=== PATIENT | female | born 1990 | race Caucasian/White ===

== ENCOUNTER 2020-08-01 09:42 | Inpatient (IN) | payer MEDICAID ==
[~2020-08-01] VITALS: Ht 162.6 cm; Wt 80.7 kg
[2020-08-01] MEDS ORDERED: MORPHINE SULFATE 4 MG/ML CPJ (NOT FOR IM USE) IV STA (09:55)
[2020-08-01 10:30] LABS: HEMATOCRIT. 39.8 % (36.0-48.0); HEMOGLOBIN. 13.8 g/dL (12.0-16.0); MEAN CORPUSCULAR VOLUME 98.1 fL (81.0-99.0); MEAN PLATELET VOLUME 7.8 fl (7.4-10.4); PLATELET 220 x1000/uL (130-400); RED BLOOD CELL COUNT 4.06 mill/uL (4.2-5.4); RED CELL DISTRIBUTION WIDTH 13.2 % (11.6-14.6)
[2020-08-01 10:34] LABS: CHLORIDE 105 mEq/L (98-107)
[2020-08-01 10:39] LABS: INR 1.1; PROTHROMBIN TIME 12.1 sec (9.6-11.0)
[2020-08-01 11:17] LABS: PLATELET ESTIMATE NORMAL
[2020-08-01] MEDS ORDERED: MORPHINE SULFATE 4 MG/ML CPJ (NOT FOR IM USE) IV ONE (11:30)
[2020-08-01] MEDS ORDERED: VANCOMYCIN 1 G PREMIX 200 ML IV ONE (13:15)
[2020-08-01] MEDS ORDERED: PIPERACILLIN/TAZ 3.375G PREMIX 50 ML IV ONE (13:15)
[2020-08-01] MEDS ORDERED: IOHEXOL-300 100 ML BOTTLE ONE (14:40)
[2020-08-01] MEDS ORDERED: ENOXAPARIN 40MG/0.4ML SYR SUBCUT SCH (16:30)
[2020-08-01 17:00] VITALS: BP 149/94
[2020-08-01] MEDS ORDERED: LEVOFLOXACIN 750MG PREMIX 100 ML IV SCH (17:00)
[2020-08-01] MEDS ORDERED: METRONIDAZOLE 500 MG PREMIX 100 ML IV SCH (17:00)
[2020-08-01] MEDS ORDERED: MORPHINE SULFATE 2 MG/ML CPJ (NOT FOR IM USE) IV PRN (17:00)
[2020-08-01] MEDS: MORPHINE SULFATE 2 MG/ML CPJ (NOT FOR IM USE) IV PRN ×2 (17:18→22:35)
[2020-08-01 17:46] VITALS: BP 144/94
[2020-08-01] MEDS: ENOXAPARIN 30MG/0.3ML SYR SUBCUT SCH (18:00)
[2020-08-01] MEDS ORDERED: AMLO1ORA PO (18:39)
[2020-08-01] MEDS ORDERED: AMLO2.5T2 MT (18:39)
[2020-08-01] MEDS ORDERED: TRAZ-251 MT (18:39)
[2020-08-01] MEDS ORDERED: LORA5TAB8 MT (18:39)
[2020-08-01] MEDS ORDERED: HYDR12.54 MT (18:39)
[2020-08-01] MEDS ORDERED: ESCI5TAB MT (18:39)
[2020-08-01] MEDS ORDERED: ALBU4TAB6 MT (18:39)
[2020-08-01] MEDS ORDERED: TOPUD MT (18:39)
[2020-08-01 20:00] VITALS: BP 129/93
[2020-08-01] MEDS: HYDROCODONE/ACETAMINOPHEN 10/325MG TABLET PO PRN (20:28)
[2020-08-01] MEDS ORDERED: POTASSIUM CHLORIDE 20MEQ TABLET SR PO SCH (21:45)
[2020-08-01] MEDS: SODIUM CHLORIDE 0.9% INJ 3ML FLUSH IVF SCH (22:42)
[2020-08-01] MEDS: METRONIDAZOLE 500 MG PREMIX 100 ML IV SCH (22:57)
[2020-08-02] VITALS: BP 130/78
[2020-08-02] MEDS: LEVOFLOXACIN 750MG PREMIX 100 ML IV SCH ×2 (00:17→22:32)
[2020-08-02] MEDS: HYDROCODONE/ACETAMINOPHEN 10/325MG TABLET PO PRN ×3 (00:33→18:03)
[2020-08-02] MEDS: MORPHINE SULFATE 2 MG/ML CPJ (NOT FOR IM USE) IV PRN ×4 (03:51→15:55)
[2020-08-02 04:00] VITALS: BP 148/85
[2020-08-02] MEDS: SODIUM CHLORIDE 0.9% INJ 3ML FLUSH IVF SCH ×3 (06:00→21:03)
[2020-08-02] MEDS: ENOXAPARIN 30MG/0.3ML SYR SUBCUT SCH ×2 (06:00→18:02)
[2020-08-02] MEDS: METRONIDAZOLE 500 MG PREMIX 100 ML IV SCH ×3 (06:00→21:02)
[2020-08-02] MEDS ORDERED: BUPIVACAINE HCL 0.5% (5MG/ML) 50ML ONE (06:26)
[2020-08-02 06:39] LABS: UCG SCREEN NEGATIVE
[2020-08-02] MEDS ORDERED: MIDAZOLAM HCL 2 MG/2 ML VIAL ONE (06:54)
[2020-08-02] MEDS ORDERED: FENTANYL CITRATE/PF 50MCG/ML 2ML VIAL ONE ×2 (06:54→07:09)
[2020-08-02] MEDS ORDERED: GLYCOPYRROLATE 0.2 MG/ML 2ML VIAL ONE (06:54)
[2020-08-02] MEDS ORDERED: PROPOFOL 200MG/20ML VIAL IV ONE (06:54)
[2020-08-02] MEDS ORDERED: SUCCINYLCHOLINE CHLORIDE 200MG/10ML IV ONE (06:55)
[2020-08-02] MEDS ORDERED: METOCLOPRAMIDE HCL 10MG/2ML VIAL ONE (06:55)
[2020-08-02] MEDS ORDERED: ONDANSETRON HCL 4MG/2ML INJ ONE (06:55)
[2020-08-02] MEDS ORDERED: ALBUTEROL 90MCG/PUFF 17GM INHALER INH ONE (07:08)
[2020-08-02] MEDS ORDERED: ONDANSETRON HCL 4MG/2ML INJ IV PRN ×2 (07:30→07:45)
[2020-08-02] MEDS ORDERED: MEPERIDINE HCL/PF 25MG/ML CPJ IV PRN ×2 (07:45)
[2020-08-02] MEDS ORDERED: MORPHINE SULFATE 2 MG/ML CPJ (NOT FOR IM USE) IV PRN (07:45)
[2020-08-02] MEDS ORDERED: HYDROMORPHONE HCL/PF 2MG/ML CPJ IV PRN (07:45)
[2020-08-02] MEDS ORDERED: SODIUM CHLORIDE 0.9% 1,000 ML IV ONE (07:45)
[2020-08-02 07:51] LABS: HEMATOCRIT. 36.7 % (36.0-48.0); HEMOGLOBIN. 12.8 g/dL (12.0-16.0); MEAN CORPUSCULAR HEMOGLOBIN 33.8 pg (28.0-32.0); MEAN CORPUSCULAR VOLUME 97.2 fL (81.0-99.0); MEAN PLATELET VOLUME 8.5 fl (7.4-10.4); PLATELET 204 x1000/uL (130-400); RED BLOOD CELL COUNT 3.78 mill/uL (4.2-5.4); RED CELL DISTRIBUTION WIDTH 13.5 % (11.6-14.6)
[2020-08-02 07:58] LABS: CHLORIDE 106 mEq/L (98-107)
[2020-08-02 08:06] LABS: HDL CHOLESTEROL 45 mg/dL (40-59); LDL CHOLESTEROL 86 mg/dL (5-100)
[2020-08-02] MEDS ORDERED: ENOXAPARIN 40MG/0.4ML SYR SUBCUT SCH (09:00)
[2020-08-02] MEDS: AMLODIPINE 10MG TABLET PO SCH (09:51)
[2020-08-02 10:36] LABS: *BARBITURATES SCREEN URINE NEGATIVE (NEGATIVE); *BENZODIAZEPINES SCREEN URINE NEGATIVE (NEGATIVE); *COCAINE SCREEN URINE NEGATIVE (NEGATIVE); METHADONE URINE SCREEN NEGATIVE (NEGATIVE)
[2020-08-02 10:37] LABS: *AMPHETAMINES SCREEN URINE NEGATIVE (NEGATIVE); PHENCYCLIDINE URINE SCREEN NEGATIVE (NEGATIVE)
[2020-08-02 11:39] LABS: CANNABINOID URINE SCREEN PRESUMTIVE POSITIVE (NEGATIVE); OPIATES URINE SCREEN PRESUMTIVE POSITIVE (NEGATIVE)
[2020-08-02 12:00] VITALS: BP 125/79
[2020-08-02 16:00] VITALS: BP 136/86
[2020-08-02 17:58] LABS: PLATELET ESTIMATE NORMAL
[2020-08-02] MEDS: DEXT 5%/0.45% NACL KCL 20MEQ/L 1,000 ML IV SCH (18:03)
[2020-08-02 20:00] VITALS: BP 110/63
[2020-08-02] MEDS: MORPHINE SULFATE 4 MG/ML CPJ (NOT FOR IM USE) IV PRN ×2 (20:15→23:15)
[2020-08-03] VITALS: BP 119/59
[2020-08-03] MEDS: HYDROCODONE/ACETAMINOPHEN 10/325MG TABLET PO PRN ×6 (00:23→20:45)
[2020-08-03] MEDS: MORPHINE SULFATE 4 MG/ML CPJ (NOT FOR IM USE) IV PRN ×5 (02:14→22:27)
[2020-08-03] MEDS: DEXT 5%/0.45% NACL KCL 20MEQ/L 1,000 ML IV SCH ×2 (03:16→14:11)
[2020-08-03 04:00] VITALS: BP 109/57
[2020-08-03] MEDS: METRONIDAZOLE 500 MG PREMIX 100 ML IV SCH ×3 (05:21→21:35)
[2020-08-03] MEDS: SODIUM CHLORIDE 0.9% INJ 3ML FLUSH IVF SCH ×3 (05:21→21:35)
[2020-08-03 08:00] VITALS: BP 117/65
[2020-08-03] MEDS: MORPHINE SULFATE 2 MG/ML CPJ (NOT FOR IM USE) IV PRN (09:00)
[2020-08-03] MEDS: ENOXAPARIN 40MG/0.4ML SYR SUBCUT SCH (09:01)
[2020-08-03] MEDS: AMLODIPINE 10MG TABLET PO SCH (09:01)
[2020-08-03 12:00] VITALS: BP 115/65
[2020-08-03 16:00] VITALS: BP 144/79
[2020-08-03] MEDS ORDERED: BISACODYL 5MG TABLET PO PRN (18:15)
[2020-08-03] MEDS: METOCLOPRAMIDE HCL 10MG/2ML VIAL IV SCH (18:22)
[2020-08-03 20:00] VITALS: BP 108/64
[2020-08-03 20:34] LABS: HEMATOCRIT. 34.1 % (36.0-48.0); HEMOGLOBIN. 11.8 g/dL (12.0-16.0); MEAN CORPUSCULAR HEMOGLOBIN 33.1 pg (28.0-32.0); MEAN CORPUSCULAR VOLUME 95.6 fL (81.0-99.0); MEAN PLATELET VOLUME 7.9 fl (7.4-10.4); PLATELET 250 x1000/uL (130-400); RED BLOOD CELL COUNT 3.57 mill/uL (4.2-5.4); RED CELL DISTRIBUTION WIDTH 13.1 % (11.6-14.6)
[2020-08-03 20:41] LABS: CHLORIDE 102 mEq/L (98-107)
[2020-08-03 21:06] LABS: PLATELET ESTIMATE NORMAL
[2020-08-03] MEDS ORDERED: CLINDAMYCIN 600 MG in DEXTROSE 5% WATER 50 ML IV SCH (22:00)
[2020-08-03] MEDS ORDERED: CLINDAMYCIN 600MG PREMIX 50 ML IV SCH (23:00)
[2020-08-03] MEDS: PIPERACILLIN/TAZOBACTAM 3.375G in DEXT 5% WATER 50ML IV SCH (23:18)
[2020-08-04] VITALS: BP 105/59
[2020-08-04] MEDS: DEXT 5%/0.45% NACL KCL 20MEQ/L 1,000 ML IV SCH ×2 (00:09→09:36)
[2020-08-04] MEDS: HYDROCODONE/ACETAMINOPHEN 10/325MG TABLET PO PRN (00:52)
[2020-08-04] MEDS: MORPHINE SULFATE 4 MG/ML CPJ (NOT FOR IM USE) IV PRN ×5 (01:50→22:14)
[2020-08-04 04:00] VITALS: BP 135/77
[2020-08-04] MEDS: PIPERACILLIN/TAZOBACTAM 3.375G in DEXT 5% WATER 50ML IV SCH ×4 (04:58→22:14)
[2020-08-04] MEDS: METOCLOPRAMIDE HCL 10MG/2ML VIAL IV SCH ×3 (04:59→22:15)
[2020-08-04] MEDS: SODIUM CHLORIDE 0.9% INJ 3ML FLUSH IVF SCH ×3 (05:00→22:15)
[2020-08-04 06:50] LABS: HEMATOCRIT. 34.5 % (36.0-48.0); HEMOGLOBIN. 11.8 g/dL (12.0-16.0); MEAN CORPUSCULAR HEMOGLOBIN 33.3 pg (28.0-32.0); MEAN CORPUSCULAR VOLUME 97.2 fL (81.0-99.0); MEAN PLATELET VOLUME 8.4 fl (7.4-10.4); PLATELET 222 x1000/uL (130-400); RED BLOOD CELL COUNT 3.55 mill/uL (4.2-5.4); RED CELL DISTRIBUTION WIDTH 13.2 % (11.6-14.6)
[2020-08-04 07:09] LABS: CHLORIDE 100 mEq/L (98-107)
[2020-08-04 08:00] VITALS: BP 123/69
[2020-08-04] MEDS: MORPHINE SULFATE 2 MG/ML CPJ (NOT FOR IM USE) IV PRN ×3 (08:24→15:20)
[2020-08-04] MEDS: ONDANSETRON HCL 4MG/2ML INJ IV PRN ×2 (08:26→13:15)
[2020-08-04] MEDS: AMLODIPINE 10MG TABLET PO SCH (08:27)
[2020-08-04] MEDS: ENOXAPARIN 40MG/0.4ML SYR SUBCUT SCH (08:27)
[2020-08-04] MEDS ORDERED: POTASSIUM CHLORIDE 20MEQ TABLET SR PO SCH ×2 (08:45→14:00)
[2020-08-04 12:00] VITALS: BP 118/63
[2020-08-04 16:00] VITALS: BP 117/72
[2020-08-04] MEDS ORDERED: KETOROLAC 30MG/ML VIAL IV PRN (16:30)
[2020-08-04] MEDS ORDERED: SENNOSIDES/DOCUSATE SOD 8.6/50MG TABLET PO PRN (17:00)
[2020-08-04] MEDS ORDERED: MORPHINE SULFATE 2 MG/ML CPJ (NOT FOR IM USE) IV PRN (17:00)
[2020-08-04] MEDS: LIDOCAINE HCL 4% CREAM 76GM TUBE TP SCH (17:58)
[2020-08-04 20:00] VITALS: BP 106/57
[2020-08-04] MEDS ORDERED: IOHEXOL-300 100 ML BOTTLE ONE (23:25)
[2020-08-04 23:26] LABS: PLATELET ESTIMATE NORMAL
[2020-08-05] VITALS: BP 124/63
[2020-08-05] MEDS: MORPHINE SULFATE 4 MG/ML CPJ (NOT FOR IM USE) IV PRN ×5 (00:18→12:45)
[2020-08-05] MEDS: LIDOCAINE HCL 4% CREAM 76GM TUBE TP SCH ×3 (00:19→12:44)
[2020-08-05 04:00] VITALS: BP 126/68
[2020-08-05] MEDS: METOCLOPRAMIDE HCL 10MG/2ML VIAL IV SCH ×2 (05:02→15:20)
[2020-08-05] MEDS: PIPERACILLIN/TAZOBACTAM 3.375G in DEXT 5% WATER 50ML IV SCH ×3 (05:02→17:00)
[2020-08-05] MEDS: SODIUM CHLORIDE 0.9% INJ 3ML FLUSH IVF SCH ×2 (05:03→15:20)
[2020-08-05] MEDS: DEXT 5%/0.45% NACL KCL 20MEQ/L 1,000 ML IV SCH ×2 (05:08→15:20)
[2020-08-05 07:18] LABS: CHLORIDE 101 mEq/L (98-107)
[2020-08-05 07:19] LABS: HEMATOCRIT. 36.5 % (36.0-48.0); HEMOGLOBIN. 12.5 g/dL (12.0-16.0); MEAN CORPUSCULAR HEMOGLOBIN 32.9 pg (28.0-32.0); MEAN CORPUSCULAR VOLUME 95.9 fL (81.0-99.0); MEAN PLATELET VOLUME 8.1 fl (7.4-10.4); PLATELET 314 x1000/uL (130-400); RED CELL DISTRIBUTION WIDTH 13.5 % (11.6-14.6)
[2020-08-05 08:00] VITALS: BP 108/63
[2020-08-05] MEDS: ENOXAPARIN 40MG/0.4ML SYR SUBCUT SCH (09:28)
[2020-08-05] MEDS: AMLODIPINE 10MG TABLET PO SCH (09:36)
[2020-08-05 12:00] VITALS: BP 108/68
[2020-08-05 14:40] LABS: PLATELET ESTIMATE NORMAL
[2020-08-05 16:00] VITALS: BP 107/57
== END 2020-08-05 18:00 | disposition left against medical advice (07) | DRG 710 ==
LOC: ER 10:03 → 6EST 13:14 → EDBEDREQ 13:17 → EDBEDREQTM 13:17 → ENRESERV 15:24
PROVIDERS: ADMIT Family Medicine; ATTEND Family Medicine
PROC: 0D9P0ZZ Drainage of Rectum, Open Approach (ICD-10-PCS; principal; 2020-08-01)
DX: A41.9 Sepsis, unspecified organism (principal); E44.1 Mild protein-calorie malnutrition; K61.1 Rectal abscess; E87.1 Hypo-osmolality and hyponatremia; E87.6 Hypokalemia; L03.317 Cellulitis of buttock; I10 Essential (primary) hypertension; Z20.822 Contact with and (suspected) exposure to COVID-19; F17.200 Nicotine dependence, unspecified, uncomplicated; Z88.6 Allergy status to analgesic agent; Z79.899 Other long term (current) drug therapy; Z79.1 Long term (current) use of non-steroidal anti-inflammatories (NSAID); Z82.49 Family history of ischemic heart disease and other diseases of the circulatory system; Z68.30 Body mass index [BMI] 30.0-30.9, adult
CPT/HCPCS: 36415; 74177; 80048; 80053; 80061; 80305; 81025; 85025; 87070; 87075; 87077; 87186; 87426; 99285; J0330; J1650; J1956; J2175; J2250; J2270; J2405; J2543; J2704; J2765; J3010; J3370; J3490; J7040; J7060; Q9967